=== PATIENT | female | born 1980 | race Caucasian/White ===

== ENCOUNTER 2019-03-03 12:55 | Emergency (ER) | payer OTHER ==
[~2019-03-03] VITALS: Ht 160 cm; Wt 69.8 kg
[2019-03-03 13:38] VITALS: BP 127/85
== END 2019-03-03 13:55 | disposition home or self-care (01) ==
LOC: M.ERS 12:55
DX: T23.001A Burn of unspecified degree of right hand, unspecified site, initial encounter (principal); X19.XXXA Contact with other heat and hot substances, initial encounter; Y93.89 Activity, other specified; Y92.89 Other specified places as the place of occurrence of the external cause; Y99.8 Other external cause status